=== PATIENT | female | born 1960 | race Caucasian/White ===

== ENCOUNTER 2017-09-14 07:23 | Day surgery (SDC) | payer MEDICAID ==
[2017-09-12 10:59] LABS: BASOPHILS # (AUTO) 0.1 X10'3 (0-0.2); BASOPHILS % (AUTO) 0.8 % (0-1); EOSINOPHILS # (AUTO) 0.6 X10'3 (0-0.9); EOSINOPHILS % (AUTO) 10.1 % (0-6); LYMPHOCYTES # (AUTO) 1.4 X10'3 (1.1-4.8); LYMPHOCYTES % (AUTO) 22.3 % (21-51); MEAN CORPUSCULAR HEMOGLOBIN 26.4 PG (27.0-31.0); MEAN CORPUSCULAR HGB CONC 33.7 % (33.0-36.5); MEAN CORPUSCULAR VOLUME 78.3 FL (78-98); MEAN PLATELET VOLUME 7.9 FL (7.4-10.4); MONOCYTES # (AUTO) 0.4 X10'3 (0-0.9); MONOCYTES % (AUTO) 6.2 % (2-12); NEUTROPHILS # (AUTO) 3.8 X10'3 (1.8-7.7); NEUTROPHILS % (AUTO) 60.6 % (42-75); PRE OP HEMATOCRIT 37.5 % (35.0-45.0); PRE OP HEMOGLOBIN 12.6 g/dL (12.0-16.0); PRE OP PLATELET COUNT 243 X10'3 (140-440); RED BLOOD COUNT 4.78 X10'6 (4.20-5.60); RED CELL DISTRIBUTION WIDTH 14.8 % (11.5-14.5)
[2017-09-12 11:05] LABS: CLARITY,URINE CLEAR (Clear); COLOR,URINE YELLOW (Yellow); GLUCOSE, URINE NEGATIVE (Neg); KETONES,URINE NEGATIVE (Neg); LEUKOCYTE ESTERASE ,URINE NEGATIVE (Neg); NITRITES, URINE NEGATIVE (Neg); OCCULT BLOOD,URINE NEGATIVE (Neg); PROTEIN,URINE NEGATIVE (Neg); UROBILINOGEN,URINE 0.2 E.U/dL (0.2-1.0)
[2017-09-12 11:07] LABS: UA COLLECTION TYPE CLN CATCH MIDSTREAM
[2017-09-12 11:16] LABS: ALKALINE PHOSPHATASE 76 IU/L (46-116); BLOOD UREA NITROGEN 20 MG/DL (7-18); BUN/CREATININE RATIO 20.8 (6.6-38.0); CALCIUM 9.1 MG/DL (8.5-10.1); CHLORIDE 104 MMOL/L (99-107); CREATININE 0.96 MG/DL (0.40-0.90); PRE OP ALT 32 U/L (30-65); PRE OP ANION GAP 9 (8-16); PRE OP AST 23 U/L (10-37); PRE OP BILIRUB, TOTAL 0.3 MG/DL (0.0-1.0); PRE OP GLUCOSE 109 MG/DL (70-104); PRE OP POTASSIUM 4.4 MMOL/L (3.4-5.1); PRE OP SODIUM 142 MMOL/L (135-145); TOTAL CARBON DIOXIDE 28.6 MMOL/L (24-32); TOTAL PROTEIN 7.9 G/DL (6.4-8.2); eGFR 60 ML/MIN
[~2017-09-14] VITALS: Ht 162.6 cm; Wt 109.7 kg
[2017-09-14] VITALS (10 sets, daily range): BP systolic 119–136; BP diastolic 61–72
[~2017-09-14 07:23] MED LIST: ALBU18HF2 IH; ASPI-1139 PO; BACL20TA84 PO; BUPIVAcaine/PF 2.5 mg/ml (0.25%) 30ml vial ONE; BUSP10TA11 PO; DIPH25CA83 PO; GABA-338 PO; GUAI600T45 PO; IPRA3AMP IH; LEVO112T52 PO; MELO-100 PO; MOME13HF INH; PRAV40TA65 PO; ROPI1TAB4 PO; ZOL50T PO; ceFAZolin 1000mg inj ONE; famotidine 20mg tablet PO ONE; iohexol 300 MG/1 ML 50ml polymer ONE; ringers solution, lacted 1,000 ML IV SCH
[2017-09-14] MEDS ORDERED: LIDOcaine 1% (10mg/ml) 2ml vial ONE (08:08)
[2017-09-14] MEDS ORDERED: ipratropium/albuterol 3ml nebule NEB ONE (08:20)
[2017-09-14] MEDS ORDERED: cefazolin/dext.iso 2gm/50ml 50 ML IV ONE (08:45)
[2017-09-14] MEDS ORDERED: ringers solution, lacted 1,000 ML IV SCH (08:46)
[2017-09-14] MEDS ORDERED: ondansetron/PF 4mg/2ml inj IV PRN (08:50)
[2017-09-14] MEDS ORDERED: meperidine/PF 50mg/ml syringe IV PRN ×3 (08:50)
[2017-09-14] MEDS ORDERED: morphine 2 MG/ML inj. syringe IV PRN ×2 (08:50)
[2017-09-14] MEDS ORDERED: proCHLORperazine 10 MG/2 ml inj IV PRN (08:50)
[2017-09-14] MEDS ORDERED: fentaNYL/PF 50MCG/1 ML 2ML syringe ONE (09:39)
[2017-09-14] MEDS ORDERED: midazolam 2 mg/2 ml injection ONE (09:39)
[2017-09-14] MEDS ORDERED: propofol inj 20 ML IV ONE (10:29)
[2017-09-14] MEDS ORDERED: neostigmine methylsulfate 1 MG/ML 10ml vial ONE (10:29)
[2017-09-14] MEDS ORDERED: ketorolac trometh. 30mg/ml inj. ONE (10:29)
[2017-09-14] MEDS ORDERED: LIDOcaine 1%/PF (10mg/ml) 5ml vial ONE (10:29)
[2017-09-14] MEDS ORDERED: glycopyrrolate 0.2mg/ml inj ONE (10:29)
== END 2017-09-14 12:00 | disposition home or self-care (01) ==
LOC: PAS 07:23
PROVIDERS: ATTEND Surgery
DX: K66.0 Peritoneal adhesions (postprocedural) (postinfection) (principal); E03.9 Hypothyroidism, unspecified; J45.909 Unspecified asthma, uncomplicated; G43.909 Migraine, unspecified, not intractable, without status migrainosus; D50.9 Iron deficiency anemia, unspecified; E78.1 Pure hyperglyceridemia; F42.9 Obsessive-compulsive disorder, unspecified; F32.9 Major depressive disorder, single episode, unspecified; F41.9 Anxiety disorder, unspecified; E66.01 Morbid (severe) obesity due to excess calories; Z79.899 Other long term (current) drug therapy; Z90.710 Acquired absence of both cervix and uterus
CPT/HCPCS: 36415; 49329; 80053; 81003; 85025; 94640; A6258; C1758; J0690; J1885; J2001; J2250; J2704; J2710; J3010; J3490; J7120; A7000; Q9967

== ENCOUNTER 2018-09-07 09:17 | Day surgery (SDC) | payer MEDICAID ==
[~2018-09-07] VITALS: Ht 162.6 cm; Wt 113.4 kg
[2018-09-07] VITALS (7 sets, daily range): BP systolic 122–154; BP diastolic 71–88
[~2018-09-07 09:17] MED LIST changes: -BUPIVAcaine/PF 2.5 mg/ml (0.25%) 30ml vial ONE; -IPRA3AMP IH; +IPRA3AMP31 IH; -PRAV40TA65 PO; +ROSU20TA PO; +albuterol 2.5 MG/3 ML nebule NEB ONE; -ceFAZolin 1000mg inj ONE; -iohexol 300 MG/1 ML 50ml polymer ONE
[2018-09-07 10:00] LABS: BASOPHILS % (AUTO) 0.7 % (0-1); EOSINOPHILS # (AUTO) 0.4 X10'3 (0-0.9); EOSINOPHILS % (AUTO) 8.3 % (0-6); HEMATOCRIT 36.2 % (35.0-45.0); HEMOGLOBIN 12.2 g/dl (12.0-16.0); LYMPHOCYTES # (AUTO) 1.5 X10'3 (1.1-4.8); LYMPHOCYTES % (AUTO) 28.9 % (21-51); MEAN CORPUSCULAR HEMOGLOBIN 26.6 PG (27.0-31.0); MEAN CORPUSCULAR HGB CONC 33.6 g/dL (33.0-36.5); MEAN CORPUSCULAR VOLUME 79.2 FL (78-98); MEAN PLATELET VOLUME 7.1 FL (7.4-10.4); MONOCYTES # (AUTO) 0.4 X10'3 (0-0.9); MONOCYTES % (AUTO) 6.8 % (2-12); NEUTROPHILS # (AUTO) 2.9 X10'3 (1.8-7.7); NEUTROPHILS % (AUTO) 55.3 % (42-75); PLATELET COUNT 262 X10'3 (140-440); RED BLOOD COUNT 4.57 X10'6 (4.20-5.60); RED CELL DISTRIBUTION WIDTH 14.7 % (11.5-14.5); WHITE BLOOD COUNT 5.3 X10'3 (4.5-11.0)
[2018-09-07 10:18] LABS: ALANINE AMINOTRANSFERASE 25 U/L (12-78); ALBUMIN 3.9 G/DL (3.4-5.0); ALKALINE PHOSPHATASE 70 IU/L (46-116); ANION GAP 9 (8-16); ASPARTATE AMINO TRANSFERASE 18 U/L (10-37); BILIRUBIN,TOTAL 0.3 MG/DL (0.1-1.0); BLOOD UREA NITROGEN 20 MG/DL (7-18); CALCIUM 9.3 MG/DL (8.5-10.1); CHLORIDE 104 MMOL/L (99-107); CREATININE 0.91 MG/DL (0.40-0.90); SODIUM 140 MMOL/L (135-145); TOTAL CARBON DIOXIDE 26.8 MMOL/L (24-32); TOTAL PROTEIN 7.9 G/DL (6.4-8.2); eGFR 64 ML/MIN
[2018-09-07 10:20] LABS: GLUCOSE 110 MG/DL (70-104)
[2018-09-07] MEDS ORDERED: ceFAZolin 1GM/D5W- ADD-VANTAGE 50 ML IV ONE (11:39)
[2018-09-07] MEDS ORDERED: VANCOMYCIN INJ 1000 MG in NORMAL SALINE 250ml IV.SOLN IV ONE (11:40)
[2018-09-07] MEDS ORDERED: ringers solution, lacted 1,000 ML IV SCH ×2 (12:24→13:48)
[2018-09-07] MEDS ORDERED: ondansetron/PF 4mg/2ml inj IV PRN ×2 (12:25→13:50)
[2018-09-07] MEDS ORDERED: morphine 4 MG/ML inj SYRINge IV PRN ×4 (12:25→13:50)
[2018-09-07] MEDS ORDERED: meperidine/PF 25mg/ml syringe IV PRN ×6 (12:25→13:50)
[2018-09-07] MEDS ORDERED: proCHLORperazine 10 MG/2 ml inj IV PRN ×2 (12:25→13:50)
[2018-09-07] MEDS ORDERED: triamcinolone acetonide 40mg/ml inj ONE (12:30)
[2018-09-07] MEDS ORDERED: BUPIVAcaine/PF 2.5mg/ml (0.25%) 10ml vial ONE (12:30)
[2018-09-07] MEDS ORDERED: dexamethasone sod phosphate 10mg/ml inj ONE (12:57)
[2018-09-07] MEDS ORDERED: sevoflurane 250ml liquid IH ONE (12:57)
[2018-09-07] MEDS ORDERED: fentaNYL/PF 50MCG/1 ML 2ML syringe ONE ×2 (12:58→13:28)
[2018-09-07] MEDS ORDERED: midazolam 2 mg/2 ml injection ONE (12:59)
[2018-09-07] MEDS ORDERED: propofol inj 20 ML IV ONE ×2 (12:59→14:08)
[2018-09-07] MEDS ORDERED: LIDOcaine 2% (20mg/ml) 5ml vial ONE (13:00)
[2018-09-07] MEDS ORDERED: ondansetron/PF 4mg/2ml inj ONE (14:03)
[2018-09-07] MEDS ORDERED: ketorolac trometh. 30mg/ml inj. ONE (14:03)
--- NOTE | 2018-09-07 14:24 | NUR ---
Received from OR via [facility], accompanied by Anesthesiologist ALMAZ and report given by Anesthesiolgist. PATIENT WITH 18G PIV IN RIGHT UE RUNNING LR AT 100. 10L MASK ON WITH 100% SATURAITONS. DENIES PAIN. RIGHT KNEE BIAS DRESSING IS CDI. + DORSALIS PEDIS AND SENSATION. VSS. Addendum: 09/07/18 at 1451 by Nomi Villegas RN, RN Amended: Links added.
--- NOTE | 2018-09-07 15:24 | NUR ---
ALL DC CRITERIA HAS BEEN MET. IV TAKEN OUT WITHOUT COMPLICATIONS. ALL INSTRUCTIONS COVERED AND ALL QUESTIONS ANSWERED. DRESSINGS CDI. OUT VIA WHEELCHAIR TO PERSONAL VEHICLE WHERE PATIENT WAS SECURED IN AND DRIVEN HOME BY FAMILY. KNEE DRESSING IS CDI. PREMEDICATED PRIOR TO DC. Addendum: 09/07/18 at 1603 by Nomi Villegas RN, RN Amended: Links added.
[2018-09-07] MEDS ORDERED: HYDROcodone/acetaminophen 10/325mg tab PO ONE (15:35)
== END 2018-09-07 15:24 | disposition home or self-care (01) ==
LOC: PRE-OP 09:17 → PAS 15:24
PROVIDERS: ATTEND Orthopaedic Surgery
DX: S83.231A Complex tear of medial meniscus, current injury, right knee, initial encounter (principal); S83.281A Other tear of lateral meniscus, current injury, right knee, initial encounter; X58.XXXA Exposure to other specified factors, initial encounter; Y93.9 Activity, unspecified; Y92.9 Unspecified place or not applicable; Y99.9 Unspecified external cause status; M22.2X1 Patellofemoral disorders, right knee; M94.261 Chondromalacia, right knee; F41.9 Anxiety disorder, unspecified; F31.9 Bipolar disorder, unspecified; E03.9 Hypothyroidism, unspecified; E78.5 Hyperlipidemia, unspecified; E66.01 Morbid (severe) obesity due to excess calories; Z87.891 Personal history of nicotine dependence; Z79.899 Other long term (current) drug therapy; Z98.890 Other specified postprocedural states
CPT/HCPCS: 29873; 29880; 36415; 71045; 80053; 85025; 93005; 94640; 94760; A6449; J0690; J1100; J1885; J2001; J2250; J2405; J2704; J3010; J3301; J3370; J3490; J7120; A6250; A7000; J7030

== ENCOUNTER 2025-01-20 11:20 | Emergency (ER) | payer MEDICAID ==
[~2025-01-20] VITALS: Ht 162.6 cm; Wt 93.0 kg
[~2025-01-20 11:20] MED LIST changes: -MOME13HF INH; +MOME13HF11 INH; -ROPI1TAB4 PO; +ROPI1TAB47 PO; -ROSU20TA PO; +ROSU20TA2 PO; +SERT-153 PO; -ZOL50T PO; -albuterol 2.5 MG/3 ML nebule NEB ONE; -famotidine 20mg tablet PO ONE; -ringers solution, lacted 1,000 ML IV SCH
[2025-01-20 11:22] VITALS: TEMP 95.7
--- NOTE | 2025-01-20 11:31 | Physician Documentation ---
History of Present Illness ~ Chief Complaint: Bloody Stools Stated Complaint: BLOODY STOOLS Time Seen by MD: 11:42 Primary Medical Doctor: ROMA Delacruz HPI 64 yr old asthmatic female presents due to concerns regarding blood accompanying bowel movements x 2 days. Describes blood as bright red and brings photos showing same. Reports stools themselves are normal color. Recent worsening of asthmatic symptoms less responsive than usual to her inhalers. Denies abd pain, chills, fever, CP, dyspnea, nausea, or vomiting. Additional note by Vamsi Doshi DO: I took over the care of this patient from previous physician. I reviewed any previous notes available, obtain my own history, review of systems and physical examination was performed by myself. Confirmed the history above. Patient also reports episodes of lightheadedness. She states that she has not had a bowel movement since the initial episode, and every time she passes gas, she has blood in his stool. Blood in stool appears to be painless. Patient has not ever had colonoscopy. Medication Reconciliation Allergies: Coded Allergies: vancomycin (Verified Allergy, Severe, 01/20/25) atorvastatin (Verified Allergy, Intermediate, HIVES, 03/25/17) Scheduled Gabapentin* (Gabapentin*), 600 MG PO TID, (Reported) Guaifenesin (Mucinex), 2 TAB PO DAILY, (Reported) Levothyroxine Sodium (Synthroid), 1 TAB PO HS, (Reported) Mometasone/Formoterol (Dulera 200 Mcg/5 Mcg Inhaler), 2 PUFFS INH Q12H, (Repor edwin) Ropinirole Hcl (Ropinirole Hcl), 2 MG PO BID, (Reported) Rosuvastatin Calcium* (Crestor*), 1 TAB PO HS, (Reported) Sertraline HCl (Sertraline HCl), 300 MG PO DAILY, (Reported) Scheduled PRN Albuterol Sulfate (Ventolin Hfa), 2 PUFFS IH Q4-6HRS PRN for SOB or wheezing, (Reported) Aspirin/Acetaminophen/Caffeine (Excedrin Extra Strength Caplet), 1 TAB PO DAILY PRN for pain, (Reported) Baclofen (Baclofen), 20 MG PO BID PRN for pain, (Reported) Buspirone Hcl* (Buspar*), 15 MG PO BID PRN for anxiety, (Reported) Diphenhydramine Hcl (Benadryl), 25 MG PO BID PRN for allergies, (Reported) Ipratropium/Albuterol Sulfate (Duoneb 2.5-0.5 Mg/3 Ml Soln), 3 ML IH QID PRN for SOB or wheezing, (Reported) Meloxicam* (Meloxicam*), 15 MG PO DAILY PRN for pain, (Reported) Past Medical History Past Medical History: High Cholesterol, Asthma, COPD, Thyroid (unspecified), Anxiety, Depression Past Surgical History: , hysterectomy Patient History: (Cancer) Malignant carcinoid tumor MOTHER (CANCER METASTASIS TO LUNG AND BRAIN), , Age: 58 Multiple myeloma MOTHER (CANCER METASTASIS TO LUNG AND BRAIN), , Age: 58 Unknown family medical history FATHER (UNKNOWN MEDICAL HISTORY), Age: 74 Alcohol Use: None Drug Use: marijuana Lives In: Home Review of Systems ROS As stated above in the HPI, otherwise all systems are reviewed and negative. Physical Exam Vital Signs: Temperature: 95.7, Source: Temporal, Heart Rate: 80, Respiratory Rate: 18, BP: 132/72, Pulse Oximetry: 99, Weight: 93.000 Oxygen Flow Rate: 0 Physical Exam General: Alert, no apparent distress. Neck: Full range of motion. Respiratory: Lungs clear, no respiratory distress. Chest: No accessory muscle use. Cardiovascular: Regular rate and rhythm, no murmurs. Gastrointestinal: Soft, nontender, nondistended. Bowels sounds present. Extremities: Normal range of motion, no deformity. Neurologic: Oriented x4. Psychiatric: Normal mood and affect. Skin: Normal color, warm and dry. No edema, no ecchymosis. Progress Results/Orders Results/Orders Orders - VAMSI DOSHI DO Cta Abdomen Pelvis (01/20/25 11:46) Completed Orders - VAMSI DOSHI DO Electrocardiogram (01/20/25 11:46) Cbc/Diff (01/20/25 11:46) Lipase (01/20/25 11:46) PBNP (01/20/25 11:46) MG (01/20/25 11:46) Hs Troponin I W Calculations (01/20/25 11:46) CMP (01/20/25 11:46) Cta Abdomen Pelvis (01/20/25 11:46) Iohexol 350mg/Ml 100ml (Omnipaque 350mg/ (01/20/25 12:27) Ua W/Microscopic, Cult If Ind (01/20/25 14:00) Vital Signs 01/20/25 01/20/25 01/20/25 11:22 11:53 15:04 Temp 95.7 Pulse 80 67 Resp 18 20 18 B/P (MAP) 132/72 137/66 (89) Pulse Ox 99 94 O2 Flow Rate 0 0 Laboratory Tests Test 01/20/25 12:00 01/20/25 14:00 White Blood Count 8.5 Red Blood Count 4.33 Hemoglobin 11.5 L Hematocrit 34.7 L Mean Corpuscular Volume 80.1 Mean Corpuscular Hemoglobin 26.5 L Mean Corpuscular Hemoglobin Concent 33.0 Red Cell Distribution Width 14.9 H Platelet Count 206 Mean Platelet Volume 7.6 Neutrophils (%) (Auto) 71.9 Lymphocytes (%) (Auto) 16.5 L Monocytes (%) (Auto) 6.8 Eosinophils (%) (Auto) 4.2 Basophils (%) (Auto) 0.6 Neutrophils # (Auto) 6.1 Lymphocytes # (Auto) 1.4 Monocytes # (Auto) 0.6 Eosinophils # (Auto) 0.4 Basophils # (Auto) 0.1 CBC Comment Sodium Level 138 Potassium Level 3.7 Chloride Level 102 Carbon Dioxide Level 28.0 Anion Gap 8 Blood Urea Nitrogen 12 Creatinine 0.86 Estimated GFR/1.73 m2 67 BUN/Creatinine Ratio 14.0 Glucose Level 117 H Calcium Level 9.0 Magnesium Level 1.8 Total Bilirubin 0.4 Aspartate Amino Transf (AST/SGOT) 18 Alanine Aminotransferase (ALT/SGPT) 31 Alkaline Phosphatase 64 Troponin I High Sensitivity 4 Pro-B-Type Natriuretic Peptide 77 Total Protein 7.5 Albumin 3.6 Globulin 3.9 Albumin/Globulin Ratio 0.9 L Lipase 27 Chemistry Comments Urine Specimen Description Cln catch midstream Urine Color Yellow Urine Clarity Clear Urine pH 6.0 Urine Specific [place] <=1.005 Urine Protein Negative Urine Glucose (UA) Negative Urine Ketones Negative Urine Occult Blood Trace-intact Urine Nitrite Negative Urine Bilirubin Negative Urine Urobilinogen 0.2 Urine Leukocyte Esterase Negative Urine RBC 0-2 Urine WBC 0-4 Urine Squamous Epithelial Cells Many Urine Renal Cells Few Urine Bacteria Few Urine Cellular Casts 0-4 Urine Hyaline Casts 0-3 Urine Culture Indicated Not ind Volume Urine Centrifuged 10 ml Urine Comment Medical Decision Making Findings Walked up as a Facility Status: ED Holds, RME process The plan was discussed with the patient, who demonstrates clear understanding of the plan and is in agreement with the plan unless otherwise noted in the chart. All questions have been answered, all concerns were addressed unless otherwise documented. I was available throughout their ED stay for frequent reassessment and questions. Differential Diagnoses (considered and possible or likely): [Most likely represents internal hemorrhoids, less likely anal fissure, neoplasm can not be excluded, lower GI bleed could not be excluded] lightheadedness could be concerning for anemia requiring transfusion, less likely hemorrhagic shock, less likely high-output heart failure ??Differential Diagnoses (considered and unlikely, not requiring evaluation currently): [No evidence of traumatic injury to the abdomen] MDM Data Please see [facility] for the following: Independent Historians and external Records Review. Historian: [Patient] Independent Historians: ?[Record review] Medication Management: [Reviewed medication list] Social History and determinants: [Reviewed] Please see the body of the note for the following: Any independent interpretations of ECG, imaging studies. All vitals signs/haemodynamics, ordered tests were independently reviewed and interpreted by myself. Nursing triage complaint and vitals reviewed, additional nursing notes were reviewed as available and I agree unless otherwise noted or documented in contradiction in the chart Vital Signs: Independently reviewed Labs: Independently interpreted Imaging: Independently interpreted Old Medical Records: Independently reviewed, see [facility] for relevant summary and information Pulse Oximetry: [98%] interpreted as [normal on room air] by me [Geosciences Associate Professor: [Regular Rate, Regular rhythm, no ectopy, NSR] reviewed and interpreted by me] Additionally notably showing: [Hemodynamics reviewed. The patient isn't febrile, not tachycardic, no evidence of hypotension or respiratory distress. Laboratory studies reviewed. There is no leukocytosis, no anemia, no platelet derangement. Chemistry is essentially unremarkable. BNP troponin negative. Lactic acid is normal. UA is nondiagnostic for UTI. Advanced imaging was obtained and it shows diverticulitis] Tests considered but not ordered include: [Not applicable. Colonoscopy should be done on an outpatient basis] Social Determinants of Health Impact: Patient was [facility] [place] to healthcare due to below par ratio of patient to medical providers. [] Comorbid Conditions Impacting Present Evaluation and Care/Treatment: [Non] Management Discussions with other Healthcare Providers: [None] Treatment and Disposition Medication Management (Given or considered): []. See EMR for details Consideration for Hospitalization/Escalation/Deescalation of Care: Admission for observation has been considered, [however the patient is able to tolerate p.o., their symptoms are controlled, they are able to rely on oral medications, and their chief complaint/diagnosis can be managed on outpatient basis.] ?ED Course:?[No clinical deterioration. No hemodynamic instability.] ?Shared decision making:?[Patient is hemodynamically stable for discharge home with follow with their primary care provider. [ ] Specific and cautious return precautions provided and discussed with full understanding. Any incidental findings were also discussed and follow up recommendations given. [] All questions answered. Patient/family were able to verbalize back return precautions. Patient/family agree to plan. Copies of imaging and laboratory studies were provided.] Code status:?FULL Please see the full Electronic Medical Record for full details of nursing documentation, medications list, other records of complete past medical history and conditions, vital signs, laboratory studies, and any radiologic study interpretations by radiologists. Portions of this note were completed using [employer] dictation software and as a result there may exist minor errors in spelling. I have reviewed elements of past family and social history and agree as included in note. Departure Disposition: 01 HOME / SELF CARE / HOMELESS Impression: Primary Impression: Diverticulitis Additional Impression: Bright red blood per rectum Condition: Improved Discharge Instructions: Diverticulitis Additional Instructions: Take antibiotics as prescribed. If his symptoms do not improve or resolve of to complete a course of antibiotics, or if they get worse, you will need further evaluation. Specifically, you must undergo colonoscopy to rule out colon cancer. Referrals: NO PRIMARY CARE PROVIDER (PCP) Prescriptions Amox Tr/Potassium Clavulanate 875/125 MG (Augmentin 875/125 MG) 875 Mg-125 Mg Tablet 1 TAB PO Q12H for 10 Days, #20 TAB Prov: VAMSI DOSHI DO 01/20/25 Education Educated: Patient Educated regarding: diagnosis, treatment, prognosis, need for follow up Signature Scribe Signature: no scribe Attestation: The note accurately reflects work and decisions made by me.Jaymie Villegas NP 01/20/25 11:31 This note accurately reflects clinical decisions, work performed by myself, Vamsi Doshi, 01/20/2025 @1151 JAYMIE SCHMITZ NP Jan 20, 2025 11:31 VAMSI DOSHI DO Jan 20, 2025 11:51
--- NOTE | 2025-01-20 11:56 | ELECTROCARDIOGRAPH REPORT ---
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 Barry Wallace Measurements Intervals [place] Rate: 70 P: 66 MS: 141 QRS: -31 QRSD: 102 T: 21 QT: 415 QTc: 448 Interpretive Statements Sinus rhythm Left ventricular hypertrophy Electronically Signed On 01-20-2025 18:13:[address] Barry Wallace Please click the below link to view image of tracing.
[2025-01-20 12:20] LABS: BASOPHILS # (AUTO) 0.1 X10'3 (0-0.2); BASOPHILS % (AUTO) 0.6 % (0-1); EOSINOPHILS # (AUTO) 0.4 X10'3 (0-0.9); EOSINOPHILS % (AUTO) 4.2 % (0-6); HEMATOCRIT 34.7 % (35.0-45.0); HEMOGLOBIN 11.5 g/dl (12.0-16.0); LYMPHOCYTES # (AUTO) 1.4 X10'3 (1.1-4.8); LYMPHOCYTES % (AUTO) 16.5 % (21-51); MEAN CORPUSCULAR HEMOGLOBIN 26.5 PG (27.0-31.0); MEAN CORPUSCULAR VOLUME 80.1 FL (78-98); MEAN PLATELET VOLUME 7.6 FL (7.4-10.4); MONOCYTES # (AUTO) 0.6 X10'3 (0-0.9); MONOCYTES % (AUTO) 6.8 % (2-12); NEUTROPHILS # (AUTO) 6.1 X10'3 (1.8-7.7); NEUTROPHILS % (AUTO) 71.9 % (42-75); PLATELET COUNT 206 X10'3 (140-440); RED BLOOD COUNT 4.33 X10'6 (4.20-5.60); RED CELL DISTRIBUTION WIDTH 14.9 % (11.5-14.5); WHITE BLOOD COUNT 8.5 X10'3 (4.5-11.0)
[2025-01-20 12:26] LABS: ALANINE AMINOTRANSFERASE 31 U/L (12-78); ALBUMIN 3.6 G/DL (3.4-5.0); ALBUMIN/GLOBULIN RATIO 0.9 (1.1-1.5); ALKALINE PHOSPHATASE 64 IU/L (46-116); ANION GAP 8 (8-16); ASPARTATE AMINO TRANSFERASE 18 U/L (10-37); BILIRUBIN,TOTAL 0.4 MG/DL (0.1-1.0); BLOOD UREA NITROGEN 12 MG/DL (7-18); CHLORIDE 102 MMOL/L (99-107); CREATININE 0.86 MG/DL (0.40-0.90); POTASSIUM 3.7 MMOL/L (3.5-5.1); SODIUM 138 MMOL/L (135-145); TOTAL PROTEIN 7.5 G/DL (6.4-8.2); eCRCL 59 ML/MIN; eGFR 67 ML/MIN
[2025-01-20] MEDS ORDERED: iohexol 350MG/ML 100ml bottle IV ONE (12:27)
[2025-01-20 12:34] LABS: LIPASE 27 U/L (16-77); MAGNESIUM 1.8 MG/DL (1.5-2.4); PRO BRAIN NATRIURETIC PEPTIDE 77 PG/ML (0-125)
[2025-01-20 12:44] LABS: GLUCOSE 117 MG/DL (70-104)
--- NOTE | 2025-01-20 13:48 | RADIOLOGY REPORT ---
Exam: CT CTA ABDOMEN PELVIS History: BRBPR Comparison Study: None TECHNIQUE: A digital wrinkle chaser image was obtained. FOLLOWING THE IV ADMINISTRATION OF OMNIPAQUE 300, mult islice data acquisition was obtained through the abdomen and pelvis. The data set was subsequently re constructed into axial images. Images reviewed on a wrist examination is an examination of axial and multiplanar reformations using a variety of window levels and settings RADIATION DOSE: DLP 34.9 mGy.cm; CTDI vol 1744 mGy. Findings: Lungs: The lung bases are clear. Heart: No cardiomegaly or pericardial effusion. Liver: Unremarkable. There is a prominent right lobe of the liver. Gallbladder: No gallstones. No gallbladder wall thickening. No biliary dilatation. Spleen: Unremarkable Pancreas: Unremarkable Adrenals: Unremarkable Kidneys: Right kidney rotated. There is bilateral renal concentration excretion without mass stone or hydronephrosis. GI tract: There is thickening of the henson of the distal descending colon with edema in the surroundi ng mesentery. No abscess or free fluid. : Unremarkable. Vasculature: Unremarkable Lymphadenopathy: Absent Peritoneum: No ascites Musculoskeletal: Unremarkable Soft tissues: Unremarkable Impression: 1. Probable diverticulitis of the distal descending colon
[2025-01-20 14:19] LABS: BILIRUBIN,URINE NEGATIVE (Neg); CLARITY,URINE CLEAR (Clear); COLOR,URINE YELLOW (Yellow); GLUCOSE, URINE NEGATIVE (Neg); KETONES,URINE NEGATIVE (Neg); LEUKOCYTE ESTERASE ,URINE NEGATIVE (Neg); NITRITES, URINE NEGATIVE (Neg); OCCULT BLOOD,URINE TRACE-INTACT (Neg); PROTEIN,URINE NEGATIVE (Neg); UROBILINOGEN,URINE 0.2 E.U/dL (0.2-1.0)
[2025-01-20 14:22] LABS: UA COLLECTION TYPE CLN CATCH MIDSTREAM
[2025-01-20 14:33] LABS: WBC,URINE 0-4 /HPF (0-4)
[2025-01-20 14:34] LABS: BACTERIA,URINE FEW /HPF (Neg); HYALINE CASTS 0-3 /LPF (NEGATIVE); RBC,URINE 0-2 /HPF (0-2); RENAL CELLS, URINE FEW /HPF; SQUAMOUS EPITHELIAL CELL,UR MANY /LPF (FEW)
[2025-01-20 14:35] LABS: CELLULAR CAST 0-4 /LPF (NEGATIVE)
[2025-01-20 15:04] VITALS: BP 137/66; PULSE 67; RESP 18; O2SAT 94
[2025-01-20] MEDS ORDERED: AMOX-580 PO (15:35)
== END 2025-01-20 15:45 | disposition home or self-care (01) ==
LOC: ER 11:21
DX: K57.33 Diverticulitis of large intestine without perforation or abscess with bleeding (principal); K62.5 Hemorrhage of anus and rectum; E78.00 Pure hypercholesterolemia, unspecified; J44.9 Chronic obstructive pulmonary disease, unspecified; F41.9 Anxiety disorder, unspecified; F32.A Depression, unspecified; F12.90 Cannabis use, unspecified, uncomplicated; Z88.1 Allergy status to other antibiotic agents; Z90.710 Acquired absence of both cervix and uterus; Z88.8 Allergy status to other drugs, medicaments and biological substances; Z79.899 Other long term (current) drug therapy
CPT/HCPCS: 36415; 74174; 80053; 81001; 83690; 83735; 83880; 84484; 85025; 93005; 99285; Q9967

== ENCOUNTER 2025-07-12 11:16 | Emergency (ER) | payer BC, MEDICAID ==
[~2025-07-12] VITALS: Ht 162.6 cm; Wt 114.4 kg
--- NOTE | 2025-07-12 11:29 | Physician Documentation ---
History of Present Illness Stated Complaint: COUGH Primary Medical Doctor: ROMA Delacruz HPI Patient is a very pleasant 65-year-old female that presents to the emergency department for evaluation of asthma. Patient reports that she is an asthmatic at baseline. Patient reports that she had difficulty with her asthma throughout the night. Despite using nebulizing treatments every 4 hours in her inhaler. Patient reports that she typically requires steroids and breathing treatments in the hospital to get on top of her asthma when she has a mild exacerbation similar to this. Patient reports fever congestion cough x1 day. No other symptoms at this time. Medication Reconciliation Allergies: Coded Allergies: vancomycin (Verified Allergy, Severe, 07/12/25) atorvastatin (Verified Allergy, Intermediate, HIVES, 07/12/25) Scheduled Albuterol Sulfate Nebs* (Proventil Nebs*), 1 VIAL NEB Q6H Azithromycin (Azithromycin), 1 TAB PO UD Gabapentin* (Gabapentin*), 600 MG PO TID, (Reported) Guaifenesin (Mucinex), 2 TAB PO DAILY, (Reported) Levothyroxine Sodium (Synthroid), 1 TAB PO HS, (Reported) Methylprednisolone (Medrol Dosepak), 0 PO UD Mometasone/Formoterol (Dulera 200 Mcg/5 Mcg Inhaler), 2 PUFFS INH Q12H, (Reported) Ropinirole Hcl (Ropinirole Hcl), 2 MG PO BID, (Reported) Rosuvastatin Calcium* (Crestor*), 1 TAB PO HS, (Reported) Sertraline HCl (Sertraline HCl), 300 MG PO DAILY, (Reported) Scheduled PRN Albuterol Sulfate (Ventolin Hfa), 2 PUFFS IH Q4-6HRS PRN for SOB or wheezing, (Reported) Aspirin/Acetaminophen/Caffeine (Excedrin Extra Strength Caplet), 1 TAB PO DAILY PRN for pain, (Reported) Baclofen (Baclofen), 20 MG PO BID PRN for pain, (Reported) Buspirone Hcl* (Buspar*), 15 MG PO BID PRN for anxiety, (Reported) Diphenhydramine Hcl (Benadryl), 25 MG PO BID PRN for allergies, (Reported) Ipratropium/Albuterol Sulfate (Duoneb 2.5-0.5 Mg/3 Ml Soln), 3 ML IH QID PRN for SOB or wheezing, (Reported) Meloxicam* (Meloxicam*), 15 MG PO DAILY PRN for pain, (Reported) Past Medical History Past Medical History: High Cholesterol, Asthma, COPD, Thyroid (unspecified), Anxiety, Depression Past Surgical History: , hysterectomy Patient History: (Cancer) Malignant carcinoid tumor MOTHER (CANCER METASTASIS TO LUNG AND BRAIN), , Age: 58 Multiple myeloma MOTHER (CANCER METASTASIS TO LUNG AND BRAIN), , Age: 58 Unknown family medical history FATHER (UNKNOWN MEDICAL HISTORY), Age: 74 Alcohol Use: None Drug Use: marijuana Lives In: Home Review of Systems ROS As stated above in the HPI, otherwise all systems are reviewed and negative. Physical Exam Physical Exam VITALS: Reviewed and as above. GENERAL: Alert, no apparent distress. HEENT: Normocephalic, atraumatic, PERRL, EOMI, dry mucosa, no erythema RESPIRATORY: Inspiratory expiratory wheezes noted throughout, lung sounds diminished in the lower bases bilaterally, patient has been after breathing treatment demonstrates significant improvement. CHEST: No accessory muscle use, no retractions CV: Regular rate, rhythm, no edema, no murmur, No: JVD GI: Soft, non-tender, bowels sounds present, no rebound, guarding, or rigidity BACK: No CVA tenderness, or swelling MUSCULOSKELETAL No deformities, no edema SKIN: Warm and dry, no rash NEURO: Oriented x4, No motor or sensory deficit PSYCH: Normal mood and affect, no agitation Medical Decision Making Additional information obtaine: other Findings Medical Decision-Making: This is a 65-year-old female with a history of chronic asthma and COPD who presented to the emergency department with an acute asthma exacerbation. The patient reported worsening respiratory symptoms overnight despite home nebulizer treatments every four hours and inhaler use. She endorsed associated symptoms of fever, congestion, and cough for one day. The patient has a history of requiring systemic corticosteroids and breathing treatments for mild exacerbations. Emergency Department Course: Laboratory diagnostics and chest X-ray were obtained and showed no concerning findings. The patient received nebulized bronchodilator therapy with significant improvement in lung sounds and overall breathing. A dose of dexamethasone was administered in the emergency department. Risk Assessment: The patient demonstrated good response to treatment with improvement in clinical status and lung sounds. Post-treatment clinical improvement supports safe discharge to home. The patient's history of recurrent exacerbations requiring systemic corticosteroids indicates [id number] persistent asthma requiring optimization of controller therapy. [1-3] Discharge Plan: Given the patient's clinical improvement and appropriate response to therapy, the decision was made to discharge the patient home with close outpatient follow-up. Medications prescribed at discharge: Azithromycin course: Prescribed for suspected respiratory infection trigger. Note that azithromycin for asthma exacerbations is not routinely recommended by TIANA guidelines; azithromycin as add-on therapy is reserved for adults with persistent symptomatic asthma despite high-dose ICS-LABA after specialist consultation. [2-3] Methylprednisolone dose pack (Medrol Dosepak): Systemic corticosteroid therapy is indicated for this exacerbation. TIANA guidelines recommend prednisolone 40-50 mg/day for 5-7 days for adults. The Medrol Dosepak provides tapering corticosteroid therapy over 6 days. [2] Continuation of home bronchodilator therapy: Patient instructed to use rescue inhaler as needed only, not on a regular schedule, as regular CRISTINA use can worsen asthma control. [2] Critical discharge interventions per TIANA guidelines: [1-3] Inhaler technique was reviewed and corrected as needed Patient counseled on recognition of worsening symptoms requiring urgent medical attention Emphasized the importance of using rescue inhaler as-needed rather than routinely Discussed modifiable risk factors including the precipitating respiratory infection Patient advised that ICS-containing controller therapy should be optimized at follow-up to reduce future exacerbation risk Follow-up: The patient will follow up within 2-7 days as recommended by TIANA guidelines for post-emergency department asthma exacerbations. At the follow-up visit, the provider should assess resolution of the exacerbation, review and optimize ICS- containing controller therapy (considering [id number] therapy with ICS-formoterol to reduce future exacerbation risk), provide or review written asthma action plan, recheck inhaler technique and adherence, and consider specialist referral given history of recurrent exacerbations. [1-3] Disposition: Discharge to home in stable condition with close outpatient follow- up and return precautions provided. Differential Dx:Considerations: Other Departure Disposition: 01 HOME / SELF CARE / HOMELESS Impression: Primary Impression: Upper respiratory infection Additional Impressions: Viral respiratory infection Asthma exacerbation Condition: Stable Discharge Instructions: Upper Respiratory Infection, Adult, Cough, Adult Additional Instructions: Why you came to the emergency department: You came to the emergency department today because your asthma symptoms got worse and were not improving with your home treatments. What we did for you today: Gave you breathing treatments to help open your airways Gave you a steroid medication called dexamethasone to reduce inflammation in your lungs Gave you the first dose of an antibiotic called azithromycin Checked your blood work and chest X-ray, which looked good Medications you are going home with: Azithromycin (antibiotic): You received your first dose here in the emergency department. Continue taking this medication once daily for 5 days total as prescribed. Medrol Dosepak (steroid pills): Follow the instructions on the package. This medication helps reduce swelling and inflammation in your airways. Take all the pills as directed, even if you start feeling better. [2][4] Albuterol nebulizer solution: Use your nebulizer machine at home only when you need it for shortness of breath or wheezing. Do not use it on a regular schedule unless your doctor tells you to. Using your rescue inhaler too often can actually make your asthma worse over time. [1-3] Important instructions for using your medications: Use your albuterol (rescue medication) only when needed, not on a schedule. If you find yourself needing it more than usual, this means your asthma is getting worse and you should seek medical care. [1-3] Make sure you are using your inhaler correctly. If you are not sure about your technique, ask your primary care doctor to watch you use it at your follow-up visit. Take all of your steroid medication as prescribed, even if you feel better. Warning signs - Return to the emergency department or call 911 if you have: Trouble breathing that is getting worse Difficulty speaking in full sentences because of shortness of breath Lips or fingernails turning blue or hawthorne Feeling confused or very drowsy Chest pain Your rescue inhaler is not helping your symptoms Fever that gets worse or does not go away Any other symptoms that worry you Follow-up care: You must follow up with your primary care doctor within 2-7 days. This follow-up visit is very important to: [1-3] Make sure you have fully recovered from this asthma attack Review what triggered this asthma attack and how to avoid triggers in the future Check that you are using your inhalers correctly Adjust your daily asthma medications if needed to prevent future attacks Create or update your asthma action plan What caused this asthma attack: Your asthma attack may have been triggered by a respiratory infection (cold or virus). Avoiding sick people, washing your hands frequently, and keeping up with your daily asthma controller medications can help prevent future attacks. Questions to ask your primary care doctor at your follow-up visit: Am I using my inhaler correctly? Do I need to change my daily asthma medications? What should I do if my symptoms start getting worse again? Do I have an asthma action plan? If not, can we create one? If you have any questions or concerns before your follow-up appointment, please call your primary care doctor's office. Referrals: NO PRIMARY CARE PROVIDER (PCP) Prescriptions Albuterol Sulfate Nebs* (Proventil Nebs*) 2.5 Mg/0.5 Ml Vial.neb 1 VIAL NEB Q6H for shortness of breath for 30 Days, #60 ML Prov: MEGHANN RODNEY 07/12/25 Methylprednisolone (Medrol Dosepak) 4 Mg Tab.ds.pk 0 PO UD, #21 TAB 0 Refills take 6 Pills Day 1, 5 Pills Day 2, 4 Pills Day 3, 3 Pills Day 4, 2 Pills Day 5 and 1 pill Day 6 Prov: MEGHANN RODNEY 07/12/25 Azithromycin (Azithromycin) 250 Mg Tablet 1 TAB PO UD for 5 Days, #6 TAB 2 the first day followed by 1 for days 2-5 Prov: MEGHANN RODNEY 07/12/25 Education Educated: Patient Educated regarding: diagnosis, treatment, need for follow up Signature Scribe Signature: A Attestation: Scribed for Meghann Rodney by SKYLER Chadwick . 07/12/25 15:16 MEGHANN RODNEY Jul 12, 2025 11:29
[2025-07-12] MEDS: DEXAMETHASONE 6 MG TABLET PO SCH (11:30)
--- NOTE | 2025-07-12 11:56 | RADIOLOGY REPORT ---
CHEST RADIOGRAPH Indication: SOB Technique: Frontal and lateral view of the chest was obtained Comparison: None FINDINGS: Lines and Tubes: None Lungs: Increased interstital prominence. This may represent pulmonary vascular congestion and/or viral pneumonia. Possible early/developing right lower lobe pneumonia. Pleura: No effusion.No pneumothorax. Cardiomediastinal contours: Unremarkable Bones: Unremarkable IMPRESSION: Increased interstital prominence. This may represent pulmonary vascular congestion and/or viral pneumonia. Possible early/developing right lower lobe pneumonia.
[2025-07-12 12:44] VITALS: TEMP 98
[2025-07-12] MEDS: DEXAMETHASONE 6 MG TABLET PO ONE (13:00)
[2025-07-12] MEDS: ipratropium/albuterol 3ml nebule NEB PRN (14:36)
[2025-07-12 14:37] VITALS: PULSE 88; RESP 20; O2SAT 96
[2025-07-12 14:44] VITALS: PULSE 82; RESP 18; O2SAT 96
[2025-07-12] MEDS ORDERED: ALB0.5UD NEB (15:10)
[2025-07-12] MEDS ORDERED: AZIT-21 PO (15:10)
[2025-07-12] MEDS ORDERED: METH4TAB81 PO (15:10)
[2025-07-12 15:28] VITALS: BP 132/69; PULSE 87; RESP 15; O2SAT 93
== END 2025-07-12 15:30 | disposition home or self-care (01) ==
LOC: ER 11:17
DX: J45.901 Unspecified asthma with (acute) exacerbation (principal); J06.9 Acute upper respiratory infection, unspecified; F12.90 Cannabis use, unspecified, uncomplicated; E78.00 Pure hypercholesterolemia, unspecified; F41.9 Anxiety disorder, unspecified; F32.A Depression, unspecified; Z88.1 Allergy status to other antibiotic agents; Z88.8 Allergy status to other drugs, medicaments and biological substances; Z90.710 Acquired absence of both cervix and uterus; Z79.899 Other long term (current) drug therapy; Z98.890 Other specified postprocedural states
CPT/HCPCS: 71046; 94640; 94760; 99284; A4615; J8540